=== PATIENT | female | born 1970 | race Caucasian/White ===

== ENCOUNTER 2016-12-08 17:34 | Emergency (ER) | payer OTHER ==
[2016-12-08 17:56] LABS: COLOR YELLOW; LEUKOCYTE ESTERASE,URINE NEGATIVE (NEGATIVE); NITRITE,URINE NEGATIVE (NEGATIVE); PH,URINE 5.5 (5.0-7.5)
[2016-12-08 18:16] VITALS: BP 158/98; PULSE 90; RESP 18; TEMP 97.9; O2SAT 98
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
[2016-12-09 12:58] LABS: CHLAMYDIA AMPLIFICATION GENPRB NEGATIVE (NEGATIVE)
== END 2016-12-08 18:35 | disposition home or self-care (01) ==
LOC: CED 17:34
DX: Z11.3 Encounter for screening for infections with a predominantly sexual mode of transmission (principal)
CPT/HCPCS: 81003-PO; 81025-PO; 99203-PO; G0463-PO

== ENCOUNTER → 2017-09-19 | Outpatient (CLI) | payer OTHER | LOC: CIMAGING 13:48 | DX: Z12.31 Encounter for screening mammogram for malignant neoplasm of breast (principal); Z80.3 Family history of malignant neoplasm of breast ==

== ENCOUNTER → 2018-11-20 | Outpatient (CLI) | payer BC | LOC: CIMAGING 07:42 | DX: Z12.31 Encounter for screening mammogram for malignant neoplasm of breast (principal); Z80.3 Family history of malignant neoplasm of breast ==